=== PATIENT | male | born 1985 ===

== ENCOUNTER 2018-01-30 00:54 | Emergency (ER) | payer SELFPAY ==
[2018-01-30 01:09] VITALS: RESP 16; TEMP 97.6
[2018-01-30] MEDS ORDERED: Sodium Chloride 0.9% 1,000 ML IV STA (01:32)
[2018-01-30 02:24] LABS: BASO # 0.2 K/uL (0.0-0.2); BASO % 1.5 % (0.0-2.0); EOS # 0.4 K/uL (0.0-0.7); EOS % 3.2 % (0.0-4.0); HEMOGLOBIN 15.7 g/dL (12.0-18.0); LYMPH # 2.1 K/uL (1.0-4.3); LYMPH % 17.8 % (20.0-40.0); MEAN CORPUSCULAR HEMOGLOBIN 29.9 pg (27.0-31.0); MEAN CORPUSCULAR HGB CONC 33.9 g/dL (33.0-37.0); MEAN PLATELET VOLUME 6.9 fl (7.2-11.7); MONO # 1.1 K/uL (0.0-0.8); MONO % 9.1 % (0.0-10.0); NEUT % 68.4 % (50.0-75.0); NRBC % 0.1 % (0.0-0.0); RBC 5.27 Mil/uL (4.40-5.90); RED CELL DISTRIBUTION WIDTH 13.1 % (11.5-14.5); WHITE BLOOD COUNT 11.6 K/uL (4.8-10.8)
--- NOTE | 2018-01-30 02:31 | ED PDOC ---
HPI: Abdomen Time Seen by Provider: 01/30/18 01:09 Chief Complaint (Nursing): Abdominal Pain Chief Complaint (Provider): Abdominal Pain History Per: Patient History/Exam Limitations: no limitations Onset/Duration Of Symptoms: Hrs (x1) Outside of [place] travel?: No Current Symptoms Are (Timing): Still Present Location Of Pain/Discomfort: Epigastric Quality Of Discomfort: Burning Associated Symptoms: Vomiting. denies: Fever, Chills Additional Complaint(s): 32 year old male presents to ED with complaints of abdominal pain x1 hour and has a past medical history of asthma. States that he has been taking ibuprofen and Advil Q6 hours x3 days for a toothache and has since developed abdominal pain. Describes pain as burning and present in the epigastric region. (+) vomiting (blood-tinged) x1 episode. (-) urinary symptoms, fever, or chills. PCP: None Past Medical History Reviewed: Historical Data, Nursing Documentation, Vital Signs Vital Signs: Last Vital Signs Temp 97.6 F 01/30/18 01:06 Pulse 62 01/30/18 04:06 Resp 16 01/30/18 01:06 BP 121/80 01/30/18 04:06 Pulse Ox 99 01/30/18 04:06 - Medical History PMH: Asthma - Family History Family History: States: Unknown Family Hx - Home Medications Home Medications: Ambulatory Orders Medication Instructions Recorded traMADol [Ultram] 50 mg PO Q8 #12 tab 01/30/18 - Allergies Allergies/Adverse Reactions: Allergies Allergy/AdvReac Type Severity Reaction Status Date / Time No Known Allergies Allergy Verified 01/30/18 01:09 Review of Systems ROS Statement: Except As Marked, All Systems Reviewed And Found Negative Constitutional: Negative for: Fever, Chills Gastrointestinal: Positive for: Vomiting (x1 episode), Abdominal Pain ( epigastric) Genitourinary Male: Negative for: Dysuria, Frequency, Incontinence, Hematuria Physical Exam - Reviewed Nursing Documentation Reviewed: Yes Vital Signs Reviewed: Yes - Physical Exam Appears: Positive for: Non-toxic, No Acute Distress Skin: Positive for: Normal Color, Warm, Dry Eye Exam: Positive for: Normal appearance ENT: Positive for: Normal ENT Inspection Cardiovascular/Chest: Positive for: Regular Rate, Rhythm. Negative for: Murmur Respiratory: Positive for: Normal Breath Sounds. Negative for: Respiratory Distress Gastrointestinal/Abdominal: Positive for: Soft, Tenderness (epigastric TTP). Negative for: Normal Exam Extremity: Positive for: Normal ROM. Negative for: Deformity Neurologic/Psych: Positive for: Alert, Oriented. Negative for: Motor/Sensory Deficits - Laboratory Results Result Diagrams: 01/30/18 02:20 01/30/18 02:20 - ECG O2 Sat by Pulse Oximetry: 100 (RA) Pulse Ox Interpretation: Normal Medical Decision Making Medical Decision Makin Initial impression: NSAID-induced gastritis Initial plan: * Labs * Lipase * NS IV * Protonix Inj 40mg IVP * Re-eval 0341 Upon re-evaluation patient notes improvement in symptoms. Patient has remained PO tolerant for the entirety of ED visit. Patient advised to cease NSAID ingestion and follow up with PCP in 1-2 days. Return precautions given. Patient is stable for discharge home. Advised only to take tramadol as absolutely needed given addictive potential. Scribe Attestation: Documented by Gunjan Dobbins acting as a scribe for Arturo Ellis MD. DO Scribe Attestation: All medical record entries made by the Scribe were at my direction and personally dictated by me. I have reviewed the chart and agree that the record accurately reflects my personal performance of the history, physical exam, medical decision making, and the department course for this patient. I have also personally directed, reviewed, and agree with the discharge instructions and disposition. Disposition - Clinical Impression Clinical Impression: NSAID induced gastritis - Disposition Referrals: [facility] [Outside] Disposition: Routine/Home Disposition Time: 03:41 Condition: IMPROVED Prescriptions: traMADol [Ultram] 50 mg PO Q8 #12 tab Instructions: Gastritis, Opioids for Short-Term Treatment of Pain, Taking Narcotics Safely Forms: [employer] ([place]), [facility] ED School/Work Excuse
[2018-01-30 03:07] LABS: ALB/GLOB RATIO 1.2 (1.0-2.1); ALBUMIN 4.3 g/dL (3.5-5.0); ALT/SGPT 34 U/L (21-72); AST/SGOT 30 U/L (17-59); BLOOD UREA NITROGEN 16 mg/dl (9-20); CALCIUM 9.5 mg/dL (8.4-10.2); GFR AFRICAN-AMERICAN > 60; GFR NON-AFRICAN AMERICAN > 60; LIPASE 117 U/L (23-300)
[2018-01-30 04:08] VITALS: BP 121/80; PULSE 62
[2018-01-30 04:44] VITALS: O2SAT 100
== END 2018-01-30 04:07 | disposition home or self-care (01) ==
LOC: H.ER 00:54
DX: K29.70 Gastritis, unspecified, without bleeding (principal)
CPT/HCPCS: 80053; 83690; 85025; 96361; 96374; 99282; C9113; J7040